=== PATIENT | female | born 1985 | race Caucasian/White ===

== ENCOUNTER 2020-07-19 01:12 | Emergency (ER) | payer MEDICAID, OTHER ==
[2020-07-19 01:22] VITALS: BP 107/70; PULSE 81
--- NOTE | 2020-07-19 01:56 | EDM.PDOC ---
ED HPI GENERAL MEDICAL PROBLEM - General Chief Complaint: Genitourinary Problem Stated Complaint: LOWER BACK/ABDOMINAL PAIN Time Seen by Provider: 07/19/20 01:31 Source of Information: Reports: Patient History Limitations: Reports: No Limitations - History of Present Illness INITIAL COMMENTS - FREE TEXT/NARRATIVE: This is a 34-year-old female. She had onset around midnight with pain or spasms of her bladder. They eventually went into the left flank area as well. She is not been running a fever there is been no nausea vomiting or diarrhea. She says she believes she has a bladder infection. She is 7 days with a normal vaginal delivery. She still has some bleeding going on but it is not foul-smelling. She is breast-feeding as well. She denies any other acute symptoms. Bladder Pain Score (Numeric/FACES): 8 - Related Data Allergies Allergy/AdvReac Type Severity Reaction Status Date / Time Sulfa (Sulfonamide Allergy Severe Syncope Verified 07/19/20 01:19 Antibiotics) amoxicillin trihydrate Allergy Syncope Verified 07/19/20 01:19 [From Augmentin] clarithromycin [From Biaxin] Allergy Rash Verified 07/19/20 01:19 latex Allergy Rash Verified 07/19/20 01:19 potassium clavulanate Allergy Syncope Verified 07/19/20 01:19 [From Augmentin] Home Meds: Home Meds . 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: - Infectious Disease History Infectious Disease History: Reports: Chicken Pox - Past Surgical History HEENT Surgical History: Reports: Oral Surgery, Tonsillectomy Other HEENT Surgeries/Procedures: wisdom tooth extraction GI Surgical History: Reports: Cholecystectomy, EGD Social & Family History - Tobacco Use Smoking Status *Q: Unknown Ever Smoked ED ROS GENERAL - Review of Systems Review Of Systems: See Below Constitutional: Denies: Fever, Chills HEENT: Reports: No Symptoms Respiratory: Reports: No Symptoms Cardiovascular: Reports: No Symptoms Endocrine: Reports: No Symptoms GI/Abdominal: Reports: Abdominal Pain. Denies: Diarrhea, Nausea, Vomiting : Reports: Discharge, Dysuria, Flank Pain Musculoskeletal: Reports: No Symptoms Skin: Reports: No Symptoms Neurological: Reports: No Symptoms Psychiatric: Reports: No Symptoms Hematologic/Lymphatic: Reports: No Symptoms ED EXAM, RENAL/ - Physical Exam Exam: See Below Exam Limited By: No Limitations General Appearance: Alert, WD/WN, No Apparent Distress Eye Exam: Bilateral Eye: Normal Inspection Ears: Normal External Exam Nose: Normal Inspection Throat/Mouth: Normal Voice, No Airway Compromise Head: Normocephalic Neck: Supple Respiratory/Chest: No Respiratory Distress, Lungs Clear, Normal Breath Sounds Cardiovascular: Regular Rate, Rhythm, No Murmur GI/Abdominal: Soft, Other (Mildly tender in the left lower quadrant in the left flank area as well as a suprapubic region. There is no right-sided tenderness or upper abdominal tenderness.) Back Exam: Full Range of Motion. No: CVA Tenderness (L), CVA Tenderness (R) Extremities: Normal Inspection, Normal Range of Motion Neurological: Alert, Oriented Psychiatric: Normal Affect, Normal Mood Skin Exam: Warm, Dry Course - Vital Signs Last Recorded V/S: Last Vital Signs Temp 97.4 F 07/19/20 01:20 Pulse 81 07/19/20 01:20 Resp 15 07/19/20 01:20 BP 107/70 07/19/20 01:20 Pulse Ox 94 L 07/19/20 01:20 - Orders/Labs/Meds Orders: Active Orders 24 hr Category Date Time Status Pelvis Non OB Comp [US] Stat Exams 07/19/20 02:04 Taken Labs: Laboratory Tests 07/19/20 Range/Units 01:29 Urine Color Yellow (Yellow) Urine Appearance Clear (Clear) Urine pH 6.5 (5.0-8.0) Ur Specific [place] 1.025 (1.005-1.030) Urine Protein Negative (Negative) Urine Glucose (UA) Negative (Negative) Urine Ketones Negative (Negative) Urine Occult Blood 3+ H (Negative) Urine Nitrite Negative (Negative) Urine Bilirubin Negative (Negative) Urine Urobilinogen 0.2 (0.2-1.0) Ur Leukocyte Esterase Negative (Negative) Urine RBC >100 H (0-5) /hpf Urine WBC 0-5 (0-5) /hpf Urine Bacteria Occasional (FEW) /hpf Urine Mucus Many H (FEW) /hpf Meds: Medications Discontinued Medications Generic Name Dose Route Start Last Admin Trade Name Freq PRN Reason Stop Dose Admin Ibuprofen 400 mg 07/19/20 02:04 07/19/20 02:21 Motrin 100 Mg/5 Ml Susp PO 07/19/20 02:05 400 mg ONETIME ONE Administration - Radiology Interpretation Free Text/Narrative:: Non-OB ultrasound does not show any acute abnormalities. The ovaries are unremarkable. - Re-Assessments/Exams Free Text/Narrative Re-Assessment/Exam: 07/19/20 04:03 Spoke to the patient about the ultrasound of the pelvis. They did not even look at the kidneys like I wanted him to. I suggested to her that if this continues she might have a kidney stone and she would need a CT scan of her abdomen. Certainly this is something that her doctor can order for her or if he gets worse she can come back to the ER. The patient states she understands. 07/19/20 04:05 I did offer to do the CAT scan of her abdomen but the patient would prefer to go home and follow-up with her family doctor. I stressed to her however if she develops a fever marked increased pain she needs to return to the ER for this CT scan. Departure - Departure Time of Disposition: 04:04 Disposition: Home, Self-Care 01 Condition: Fair Clinical Impression: Acute left flank pain, Left lower quadrant abdominal pain - Discharge Information *PRESCRIPTION DRUG MONITORING PROGRAM REVIEWED*: Not Applicable *COPY OF PRESCRIPTION DRUG MONITORING REPORT IN PATIENT [place]: Not Applicable Instructions: Flank Pain, Adult, [id number] Referrals: PCP,None [Primary Care Provider] - Forms: ED Department Discharge Additional Instructions: Continue with the ibuprofen or Tylenol for the pain, if the pain gets markedly worse you need to return to the ER for a CT scan of your abdomen, follow-up with your family doctor this week for recheck and return to the ER if needed. Sepsis Event Note (ED) - Evaluation Sepsis Screening Result: No Definite Risk - Focused Exam Vital Signs: Vital Signs Temp Pulse Resp BP Pulse Ox 07/19/20 01:20 97.4 F 81 15 107/70 94 L - My Orders Last 24 Hours: My Active Orders 07/19/20 02:04 Pelvis Non OB Comp [US] Stat - Assessment/Plan Last 24 Hours: My Active Orders 07/19/20 02:04 Pelvis Non OB Comp [US] Stat
[2020-07-19] MEDS ORDERED: Ibuprofen Susp 100 MG/5 ML 5 ML UD Cup PO ONE (02:04)
[2020-07-19] MEDS ORDERED: Albuterol 6.7 GM Inhaler INH ONE (04:07)
--- NOTE | 2020-08-20 08:25 | US ---
PROCEDURE INFORMATION: Exam: US Nonobstetric Pelvis; Complete Exam date and time: 07/19/2020 2:39 AM Age: 34 years old Clinical indication: Pelvic pain; Patient HX: 7 days post TECHNIQUE: Imaging protocol: Transabdominal pelvic nonobstetric ultrasound. Complete exam. Real time ultrasound with image documentation. COMPARISON: US Pelvis Non OB Comp 07/22/2014 1:30 PM FINDINGS: Uterus/cervix: Enlarged uterus measuring 12.6 x 7.9 x 10.3 cm with a thickened, avascular, heterogeneous endometrial complex measuring up to 2.2 cm with fluid within the endometrial cavity. Right adnexa: The right ovary measures 3.8 x 1.9 x 2.3 cm and demonstrates normal color flow. Left adnexa: The left ovary measures 2.5 x 1.8 x 1.8 cm and demonstrates normal color flow. Intraperitoneal space: None. Bladder: Normal. IMPRESSION: 1. Enlarged uterus measuring 12.6 x 7.9 x 10.3 cm with a thickened heterogeneous endometrial complex measuring up to 2.2 cm in thickness with fluid within the endometrial cavity. Retained products of conception cannot be entirely excluded in this patient, but less likely. 2. Unremarkable ovaries. Thank you for allowing us to participate in the care of your patient. Dictated and Authenticated by: Shaheen Fan MD 08/19/2020 10:15 PM Central Time ([place] & [place]) [facility]
== END 2020-07-19 04:14 | disposition home or self-care (01) ==
LOC: JD.ED 01:12
DX: O99.893 Other specified diseases and conditions complicating puerperium (principal); R10.32 Left lower quadrant pain; R30.0 Dysuria; Z88.2 Allergy status to sulfonamides; Z88.1 Allergy status to other antibiotic agents; Z91.040 Latex allergy status; Z90.49 Acquired absence of other specified parts of digestive tract
CPT/HCPCS: 76856; 81001; 99284; A9270; 99282

== ENCOUNTER 2020-07-22 10:23 | Emergency (ER) | payer MEDICAID ==
[2020-07-22] MEDS ORDERED: Sodium Chloride 0.9% 10 ML Syringe FLUSH PRN (10:55)
[2020-07-22] MEDS ORDERED: Ondansetron 4 MG/2 ML SDV IVPUSH ONE (10:55)
[2020-07-22] MEDS ORDERED: HYDROmorphone 0.5 MG/0.5 ML Syringe IVPUSH ONE ×2 (10:57→12:23)
[2020-07-22] MEDS ORDERED: Sodium Chloride 0.9% 1,000 ML IV SCH (11:00)
--- NOTE | 2020-07-22 11:44 | EDM.PDOC ---
ED HPI GENERAL MEDICAL PROBLEM - General Chief Complaint: Back Pain or Injury Stated Complaint: LOW BACK PAIN Time Seen by Provider: 07/22/20 10:38 Source of Information: Reports: Patient History Limitations: Reports: No Limitations - History of Present Illness INITIAL COMMENTS - FREE TEXT/NARRATIVE: The patient presents for left flank pain. She is 11 days post . . She delivered in [place]. She came in to be seen on Tuesday night for the pain. She had trouble urinating and thought she had a UTI. She had no UTI and she did have some blood in her urine. She is still having some mild bleeding from post delivery. An US was done and it showed an enlarged uterus with a thickened heterogeneous endometrial complex measuring up to 2.2cm in thickness with fluid within the endometrial cavity. Retained products of conception cannot be entirely excluded in this patient. She had more flank pain and not pelvic pain. A CT was offered but she did not want that done. She had no pain when she left. The pain came back today in the left flank and she has some trouble urinating. She has some bleeding and mild discharge. She has no fever, chills, cough, chest pain, or shortness of breath. She has no nausea. She has no history of kidney stones. Onset: Gradual Duration: Day(s): Location: Reports: Abdomen, Back Quality: Reports: Sharp Severity: Severe Improves with: Reports: None Worsens with: Reports: None Associated Symptoms: Reports: Nausea/Vomiting. Denies: Chest Pain, Cough, Fever/Chills, Headaches, Shortness of Breath Left Lower Back Pain Score (Numeric/FACES): 8 - Related Data Allergies Allergy/AdvReac Type Severity Reaction Status Date / Time Sulfa (Sulfonamide Allergy Severe Syncope Verified 07/22/20 10:40 Antibiotics) amoxicillin trihydrate Allergy Syncope Verified 07/22/20 10:40 [From Augmentin] clarithromycin [From Biaxin] Allergy Rash Verified 07/22/20 10:40 latex Allergy Rash Verified 07/22/20 10:40 potassium clavulanate Allergy Syncope Verified 07/22/20 10:40 [From Augmentin] Home Meds: Home Meds Hydrocodone/Acetaminophen [Hydrocodone-Acetamin 5-325 mg] 1 - 2 each PO Q8HR PRN #20 tablet 07/22/20 [Rx] Tamsulosin HCl [Flomax] 0.4 mg PO DAILY #7 cap.er.24h 07/22/20 [Rx] Past Medical History Gastrointestinal History: Reports: Other (See Below) Other Gastrointestinal History: colitis 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: - Infectious Disease History Infectious Disease History: Reports: Chicken Pox - Past Surgical History HEENT Surgical History: Reports: Oral Surgery, Tonsillectomy Other HEENT Surgeries/Procedures: wisdom tooth extraction GI Surgical History: Reports: Cholecystectomy, EGD Social & Family History - Tobacco Use Smoking Status *Q: Never Smoker ED ROS GENERAL - Review of Systems Review Of Systems: See Below Constitutional: Reports: No Symptoms HEENT: Reports: No Symptoms Respiratory: Reports: No Symptoms Cardiovascular: Reports: No Symptoms Endocrine: Reports: No Symptoms GI/Abdominal: Reports: Abdominal Pain, Nausea. Denies: Diarrhea, Vomiting : Reports: Flank Pain (left) ED EXAM,LOWER BACK PAIN/INJURY - Physical Exam Exam: See Below Exam Limited By: No Limitations General Appearance: Alert, No Apparent Distress Ears: Normal External Exam Nose: Normal Inspection Head: Atraumatic, Normocephalic Neck: Normal Inspection Respiratory/Chest: No Respiratory Distress, Lungs Clear, Normal Breath Sounds Cardiovascular: Regular Rate, Rhythm, No Edema, No Murmur GI/Abdominal: Soft, No Organomegaly, No Mass, Tender (Mild generalized tenderness) Back Exam: No: CVA Tenderness (L) Course - Vital Signs Last Recorded V/S: Last Vital Signs Temp 97.8 F 07/22/20 10:36 Pulse 93 07/22/20 10:36 Resp 16 07/22/20 10:36 BP 122/81 07/22/20 10:36 Pulse Ox 97 07/22/20 10:36 - Orders/Labs/Meds Orders: Active Orders 24 hr Category Date Time Status Peripheral IV Care [RC] . DIRECTED Care 07/22/20 10:56 Active Abdomen Pelvis wo Cont [CT] Stat Exams 07/22/20 10:55 Taken Sodium Chloride 0.9% [Normal Saline] 1,000 ml Med 07/22/20 11:00 Active IV ASDIRECTED Sodium Chloride 0.9% [Saline Flush] Med 07/22/20 10:55 Active 10 ml FLUSH ASDIRECTED PRN ED Antiemetic Medication Reflex [OM.PC] Stat Oth 07/22/20 10:56 Ordered Peripheral IV Insertion Adult [OM.PC] Stat Oth 07/22/20 10:55 Ordered Medication Orders Sodium Chloride (Normal Saline) 1,000 mls @ 125 mls/hr IV ASDIRECTED ANITHA Last Admin: 07/22/20 11:18 Dose: 125 mls/hr Documented by: ITZEL Sodium Chloride (Saline Flush) 10 ml FLUSH ASDIRECTED PRN PRN Reason: Keep Vein Open Last Admin: 07/22/20 11:10 Dose: 10 ml Documented by: ITZEL Labs: Laboratory Tests 07/22/20 07/22/20 07/22/20 Range/Units 11:10 11:10 11:57 WBC 8.15 (3.98-10.04) K/mm3 RBC 4.58 (3.98-5.22) M/mm3 Hgb 14.2 (11.2-15.7) gm/dl Hct 43.8 (34.1-44.9) % MCV 95.6 H (79.4-94.8) fl MCH 31.0 (25.6-32.2) pg MCHC 32.4 (32.2-35.5) g/dl RDW Std Deviation 42.2 (36.4-46.3) fL Plt Count 319 (182-369) K/mm3 MPV 9.9 (9.4-12.3) fl Neut % (Auto) 67.8 (34.0-71.1) % Lymph % (Auto) 22.3 (19.3-51.7) % Cannon % (Auto) 8.3 (4.7-12.5) % Eos % (Auto) 1.3 (0.7-5.8) Baso % (Auto) 0.1 (0.1-1.2) % Neut # (Auto) 5.51 (1.56-6.13) K/mm3 Lymph # (Auto) 1.82 (1.18-3.74) K/mm3 Cannon # (Auto) 0.68 H (0.24-0.36) K/mm3 Eos # (Auto) 0.11 (0.04-0.36) K/mm3 Baso # (Auto) 0.01 (0.01-0.08) K/mm3 Sodium 140 (136-145) mEq/L Potassium 4.0 (3.5-5.1) mEq/L Chloride 104 (98-107) mEq/L Carbon Dioxide 23 (21-32) mEq/L Anion Gap 17.0 H (5-15) BUN 17 (7-18) mg/dL Creatinine 0.8 (0.55-1.02) mg/dL Est Cr Clr Drug Dosing TNP Estimated GFR (MDRD) > 60 (>60) mL/min BUN/Creatinine Ratio 21.3 H (14-18) Glucose 88 (74-106) mg/dL Calcium 8.7 (8.5-10.1) mg/dL Total Bilirubin 0.3 (0.2-1.0) mg/dL AST 27 (15-37) U/L ALT 44 (14-59) U/L Alkaline Phosphatase 110 (46-116) U/L Total Protein 7.5 (6.4-8.2) g/dl Albumin 3.5 (3.4-5.0) g/dl Globulin 4.0 gm/dL Albumin/Globulin Ratio 0.9 L (1-2) Lipase 111 (73-393) U/L Urine Color Yellow (Yellow) Urine Appearance Clear (Clear) Urine pH 6.0 (5.0-8.0) Ur Specific [place] > or = 1.030 (1.005-1.030) Urine Protein Negative (Negative) Urine Glucose (UA) Negative (Negative) Urine Ketones Negative (Negative) Urine Occult Blood 2+ H (Negative) Urine Nitrite Negative (Negative) Urine Bilirubin Negative (Negative) Urine Urobilinogen 0.2 (0.2-1.0) Ur Leukocyte Esterase Negative (Negative) Urine RBC 40-50 H (0-5) /hpf Urine WBC 0-5 (0-5) /hpf Ur Epithelial Cells 10-20 H (0-5) /hpf Urine Bacteria Few (FEW) /hpf Urine Mucus Moderate H (FEW) /hpf Meds: Medications Generic Name Dose Route Start Last Admin Trade Name Freq PRN Reason Stop Dose Admin Sodium Chloride 1,000 mls @ 125 mls/hr 07/22/20 11:00 07/22/20 11:18 Normal Saline IV 125 mls/hr ASDIRECTED ANITHA Administration Sodium Chloride 10 ml 07/22/20 10:55 07/22/20 11:10 Saline Flush FLUSH 10 ml ASDIRECTED PRN Administration Keep Vein Open Discontinued Medications Generic Name Dose Route Start Last Admin Trade Name Christianoq PRN Reason Stop Dose Admin Hydromorphone HCl 0.25 mg 07/22/20 10:57 07/22/20 11:16 Dilaudid IVPUSH 07/22/20 10:58 0.25 mg ONETIME ONE Administration Hydromorphone HCl 0.5 mg 07/22/20 12:23 07/22/20 12:31 Dilaudid IVPUSH 07/22/20 12:24 0.5 mg ONETIME ONE Administration Ketorolac Tromethamine 30 mg 07/22/20 12:23 07/22/20 12:33 Toradol IVPUSH 07/22/20 12:24 30 mg ONETIME ONE Administration Ondansetron HCl 4 mg 07/22/20 10:55 07/22/20 11:14 Zofran IVPUSH 07/22/20 10:56 4 mg ONETIME ONE Administration - Re-Assessments/Exams Free Text/Narrative Re-Assessment/Exam: 07/22/20 12:39 I ordered an IV NS at 125mL/hr, zofran 4mg IV, dilaudid 0.25mg IV, lab, UA, labs and a CT of her abdomen and pelvis to look for a kidney stone. 07/22/20 12:55 Her CBC and CMP look good. Her UA shows no UTI but she has blood. Her CT shows a 4mm left UVJ calculus, left hydronephrosis. Left renal calculi. She had more pain so I ordered dilaudid 0.5mg IV and toradol 30mg IV. She felt better after that. I will get her a strainer, flomax and hydrocodone for pain. Departure - Departure Time of Disposition: 13:00 Disposition: Home, Self-Care 01 Condition: Good Clinical Impression: Ureteral calculus, left, Ureteral colic, Kidney stone on left side - Discharge Information *PRESCRIPTION DRUG MONITORING PROGRAM REVIEWED*: No *COPY OF PRESCRIPTION DRUG MONITORING REPORT IN PATIENT [place]: No Prescriptions: Tamsulosin HCl [Flomax] 0.4 mg PO DAILY #7 cap.er.24h Hydrocodone/Acetaminophen [Hydrocodone-Acetamin 5-325 mg] 1 - 2 each PO Q8HR PRN #20 tablet PRN Reason: Pain Referrals: PCP,None [Primary Care Provider] - Gurjit Black MD [Ordering Only Provider] - 1 Week Forms: ED Department Discharge Additional Instructions: Drink plenty of fluids. Take flomax daily. Take tylenol or motrin for pain. If that does not work try the hydrocodone. Do not exceed 30mg in a 24 hours period. If you have to pump and dump. Strain your urine just to know if you passed the stone. If you do not pass the stone within a week. Follow up with Dr Black in [place]. Please return if you are worse. Sepsis Event Note (ED) - Evaluation Sepsis Screening Result: No Definite Risk - Focused Exam Vital Signs: Vital Signs Temp Pulse Resp BP Pulse Ox 07/22/20 10:36 97.8 F 93 16 122/81 97 - My Orders Last 24 Hours: My Active Orders 07/22/20 10:55 Abdomen Pelvis wo Cont [CT] Stat Sodium Chloride 0.9% [Saline Flush] 10 ml FLUSH ASDIRECTED PRN Peripheral IV Insertion Adult [OM.PC] Stat 07/22/20 10:56 Peripheral IV Care [RC] . DIRECTED ED Antiemetic Medication Reflex [OM.PC] Stat 07/22/20 11:00 Sodium Chloride 0.9% [Normal Saline] 1,000 ml IV ASDIRECTED - Assessment/Plan Last 24 Hours: My Active Orders 07/22/20 10:55 Abdomen Pelvis wo Cont [CT] Stat Sodium Chloride 0.9% [Saline Flush] 10 ml FLUSH ASDIRECTED PRN Peripheral IV Insertion Adult [OM.PC] Stat 07/22/20 10:56 Peripheral IV Care [RC] . DIRECTED ED Antiemetic Medication Reflex [OM.PC] Stat 07/22/20 11:00 Sodium Chloride 0.9% [Normal Saline] 1,000 ml IV ASDIRECTED
[2020-07-22] MEDS ORDERED: Ketorolac 30 MG/ML SDV IVPUSH ONE (12:23)
[2020-07-22 13:30] VITALS: BP 97/69; PULSE 66
--- NOTE | 2020-08-18 10:58 | CT ---
"PROCEDURE INFORMATION: Exam: CT Abdomen And Pelvis Without Contrast Exam date and time: 07/22/2020 11:00 AM Age: 34 years old Clinical indication: Abdominal pain; Flank; Left TECHNIQUE: Imaging protocol: Computed tomography of the abdomen and pelvis without contrast. Radiation optimization: All CT scans at this facility use at least one of these dose optimization techniques: automated exposure control; mA and/or kV adjustment per patient size (includes targeted exams where dose is matched to clinical indication); or iterative reconstruction. COMPARISON: US Pelvis Non OB Comp 07/19/2020 2:39 AM FINDINGS: Liver: No mass. Gallbladder and bile ducts: Cholecystectomy. Pancreas: Normal. No ductal dilation. Spleen: Normal. No splenomegaly. Adrenal glands: Normal. No mass. Kidneys and ureters: 4 mm left ureterovesical junction calculus along with a smaller more proximal distal ureteral calculus, minimal left hydronephrosis. Very small left renal calculi. No right hydronephrosis. Stomach and bowel: No acute findings. No obstruction. No mucosal thickening. Appendix: No evidence of appendicitis. Intraperitoneal space: Unremarkable. No free air. No significant fluid collection. Vasculature: No abdominal aortic aneurysm. Lymph nodes: No significant adenopathy. Urinary bladder: Unremarkable as visualized. Reproductive: No acute findings. Uterine enlargement. Bones/joints: No acute findings. Soft tissues: Unremarkable. SHIVANI DAVIDSON | Final Radiology Report CONFIDENTIALITY STATEMENT This report is intended only for use by the referring physician, and only in accordance with law. If you received this in error, call [phone]. Page 2 of 2 IMPRESSION: 4 mm left UVJ calculus, left hydronephrosis. Small left renal calculi. Thank you for allowing us to participate in the care of your patient. Dictated and Authenticated by: Valdez Alberts MD 08/18/2020 11:32 AM Central Time ([place] & [place]) [facility]ITAL[facility]"
== END 2020-07-22 13:30 | disposition home or self-care (01) ==
LOC: JD.ED 10:23
DX: O99.893 Other specified diseases and conditions complicating puerperium (principal); N13.2 Hydronephrosis with renal and ureteral calculous obstruction; Z88.2 Allergy status to sulfonamides; Z88.1 Allergy status to other antibiotic agents; Z91.040 Latex allergy status; Z90.49 Acquired absence of other specified parts of digestive tract
CPT/HCPCS: 36415; 74176; 80053; 81001; 83690; 85025; 96361; 96374; 96375; 96376; 99284; J1170; J1885; J2405; J7030; 99283